=== PATIENT | female | born 1985 | race Caucasian/White ===

== ENCOUNTER 2021-04-02 11:34 | Emergency (ER) | payer MEDICAID ==
[~2021-04-02] VITALS: Ht 154.9 cm; Wt 56.7 kg
[2021-04-02] MEDS ORDERED: NORVASC10 MG PO (12:02)
[2021-04-02] MEDS ORDERED: NAPROSYN500 MG PO (13:08)
[2021-04-02] MEDS ORDERED: CRUTCHES MISCELL (13:08)
[2021-04-02 13:27] VITALS: BP 145/85
== END 2021-04-02 13:28 | disposition home or self-care (01) ==
LOC: M.ERS 11:34
DX: M79.672 Pain in left foot (principal); I10 Essential (primary) hypertension; Z98.890 Other specified postprocedural states; Z79.899 Other long term (current) drug therapy